=== PATIENT | male | born 1965 | race Caucasian/White ===

== ENCOUNTER → 2020-06-24 13:59 | Outpatient (CLI) | payer OTHER, SELFPAY ==
--- NOTE | ~2020-06-24 | XR_ITS ---
XR shoulder RT min 2V 06/24/2020 14:32 INDICATION: Right shoulder pain PROCEDURE: 4 views right shoulder COMPARISON: No prior studies for comparison. FINDINGS: Fracture, dislocation or subluxation is not identified. The soft tissues appear within norm al limits. No foreign bodies are identified. IMPRESSION: 1: NO ACUTE BONE OR JOINT ABNORMALITY IDENTIFIED. Reviewed, dictated and finalized at location A.
== END ==
PROVIDERS: PCP Family Medicine; Visit Provider Family Medicine
DX: M25.511 Pain in right shoulder (principal)
CPT/HCPCS: 73030

== ENCOUNTER → 2022-02-09 07:46 | Outpatient (CLI) | payer BC, SELFPAY ==
--- NOTE | ~2022-02-09 | US_ITS ---
EXAMINATION: US abdomen complete DATE: 02/09/2022 08:17 INDICATION: Abdominal pain, change in bowel function TECHNIQUE: Multiple grayscale and Doppler ultrasound images of the abdomen were obtained. COMPARISON: None available FINDINGS: The head and body of the pancreas are normal. The pancreatic tail is obscured by bowel gas. The liver demonstrates increased echogenicity, heterogenous echotexture, and decreased through trans mission. No surface nodularity. Normal hepatopetal flow in the main portal vein. There is a 4 mm gall bladder polyp. The gallbladder is otherwise normal with no abnormal wall thickening, pericholecystic fluid or stones. The normal common bile duct measures 4 mm. There was no sonographic Rosenthal sign. The visualized portions of the aorta and inferior vena cava are normal. The right kidney measures 13.3 x 5.2 x 6.2 cm. The left kidney measures 13.1 x 5.3 x 5.1 cm. The kidn eys demonstrate normal parenchymal echogenicity. There is no hydronephrosis. The spleen is normal in appearance and measures 9.1 cm. IMPRESSION: 1. Diffuse hepatic steatosis. 2. Benign gallbladder polyp. Reviewed, dictated and finalized at location A.
== END ==
PROVIDERS: PCP Physician Assistant; Visit Provider Physician Assistant
DX: R10.9 Unspecified abdominal pain (principal); R19.8 Other specified symptoms and signs involving the digestive system and abdomen; K76.0 Fatty (change of) liver, not elsewhere classified; K82.4 Cholesterolosis of gallbladder
CPT/HCPCS: 76700

== ENCOUNTER → 2022-03-10 10:09 | Outpatient (CLI) | payer BC, SELFPAY ==
--- NOTE | ~2022-03-10 | CT_ITS ---
EXAMINATION: CT abdomen pelvis wo con DATE: 03/10/2022 10:24 INDICATION: Abdominal pain TECHNIQUE: Computed tomography (CT) of the abdomen and pelvis was performed without intravenous contr ast. Automated exposure control and iterative reconstruction technique were employed. Exam dose: 100 7.02 mGy-cm total exam DLP. COMPARISON: 02/09/2022 complete abdominal ultrasound 11/25/2007 CT abdomen FINDINGS: The lung bases are clear. Normal heart size. No pericardial or pleural effusion. Hepatic steatosis with some pericholecystic sparing. No hepatic, splenic, pancreatic, adrenal or dario l space-occupying mass lesion is evident. No bile duct or pancreatic duct dilatation. No urinary tract calculus or hydroureteronephrosis. Normal appendix. Diverticulosis of the left colon; no CT evidence of diverticulitis. No bowel obstruc tion, bowel wall thickening, pneumatosis or intraperitoneal free air. Normal caliber and atherosclerotic calcification of the abdominal aorta and iliac arteries. No intrap eritoneal or retroperitoneal or pelvic mass lesion or adenopathy or ascites. Prostate enlargement and calcifications. There is moderate diffuse thickening of bladder wall, likely due to prostate enlargement. Diffuse idiopathic skeletal hyperostosis of the thoracic spine. There is degenerative spurring but re lative preservation of intervertebral disc spaces of the lumbar spine. No suspicious osteolytic or os teoblastic lesions are noted. IMPRESSION: Hepatic steatosis Normal appendix Diverticulosis of left colon Prostate enlargement and calcifications Reviewed, dictated and finalized at [facility]. Reviewed, dictated and finalized at location A.
== END ==
PROVIDERS: PCP Internal Medicine Gastroenterology; Visit Provider Physician Assistant
DX: K76.0 Fatty (change of) liver, not elsewhere classified (principal); K57.30 Diverticulosis of large intestine without perforation or abscess without bleeding; N40.1 Benign prostatic hyperplasia with lower urinary tract symptoms
CPT/HCPCS: 74176

== ENCOUNTER 2022-03-31 02:23 | Day surgery (SDC) | payer BC, SELFPAY ==
[2022-03-24 10:02] VITALS: BMI 32.6
[2022-03-31 11:08] LABS: Glucose Point of Care 150 mg/dl (65-105)
[2022-03-31 11:09] VITALS: BP 118/69; PULSE 64; RESP 18; TEMP 36.1; O2SAT 100
[2022-03-31] MEDS: LACTATED RINGERS 1,000 ML 150 ML IV CONT (11:16)
--- NOTE | 2022-03-31 11:55 | WPDHPUPDATE1 ---
History and Physical Update Update Date/Time: 03/31/22 11:55 History and Physical has been reviewed, including an updated exam of the patient. There are NO changes in the patient's condition. Risks, benefits, and alternatives have been discussed and questions answered. Patient agrees to proceed with procedure.
--- NOTE | 2022-03-31 12:00 | P.PNAN_ITS ---
Anes - Initial Pre Proc Eval Procedure: Operation Date: 03/31/22 12:30 Proposed Procedures p Esophagogastroduodenoscopy & Colonoscopy - Alexander Thomas MD Date/Time: 03/31/22 12:00 Surgeon: Alexander Thomas MD Pre Op Diagnosis: abd pain & dysphagia; change in bowel habits Patient Data Age: 56 Gender: M Height: 1.73 m Weight: 97.2 kg Last Vital Signs Temp 97.0 F L 03/31/22 11:09 Pulse 64 03/31/22 11:09 Resp 18 03/31/22 11:09 BP 118/69 03/31/22 11:09 Pulse Ox 100 03/31/22 11:09 O2 Del Method Room Air 03/31/22 11:09 Allergies Allergy/AdvReac Type Severity Reaction Status Date / Time Contrast Media Allergy Severe Unknown Uncoded 03/24/22 10:03 Home Medications Medication Instructions Recorded Confirmed Type amlodipine 5 mg tablet 5 mg PO DAILY 03/09/22 03/24/22 History atorvastatin 20 mg tablet 20 mg PO DAILY 03/09/22 03/24/22 History dofetilide 500 mcg capsule 500 mcg PO BID 03/09/22 03/24/22 History (Tikosyn) glipizide 10 mg tablet 10 mg PO BID 03/09/22 03/24/22 History irbesartan 300 mg tablet 300 mg PO DAILY 03/09/22 03/24/22 History metformin 1,000 mg tablet 1,000 mg PO BID 03/09/22 03/24/22 History metoprolol tartrate 100 mg tablet 100 mg PO DAILY 03/09/22 03/24/22 History apixaban 5 mg tablet (Eliquis) 1 tablet PO BID 03/24/22 03/31/22 History empagliflozin 10 mg tablet 1 tablet PO DAILY 03/24/22 03/24/22 History (Jardiance) spironolactone 25 mg tablet 1 tablet PO DAILY 03/24/22 03/24/22 History Laboratory Tests 03/31/22 11:00 POC Capillary Glucose 150 mg/dl H mg/dl (65-105) Patient hx anesthesia problems: none Family hx anesthesia problems: none Results Review: All pre-operative results and documents have been reviewed as part of the pre- operative evaluation. [facility] Past Medical History Medical History (Updated 03/09/22 @ 13:12 by LILIYA Matos) Change in bowel habit Diabetes Gallbladder polyp Hepatic steatosis HLD (hyperlipidemia) HTN (hypertension) Social History Social History (System 03/02/22 @ 10:29 by Marie Camejo) Smoking status: Never smoker Alcohol intake: current Substance use: never Substance use type: does not use Living arrangements: with family Spiritual care concerns: No Anes - Eval Final PreProcedure Day of Procedure 03/31/22 12:00 Patient weight: obese Heart: regular rate and rhythm Lungs: clear to auscultation Airway: Mallampati scale class II Neurological: alert and oriented Last oral intake: >/= 8 hours ASA classification: III Emergent: no Anesthetic plan: proceed Anesthesia type and monitoring: general GIVS and standard monitoring Results Review: All pre-operative results and documents have been reviewed as part of the pre- operative evaluation. Informed Consent: The patient's anesthetic plan and its attendant risks and benefits were discussed with the patient/family/POA. Questions were solicited and answers provided to the satisfaction of the patient/family/POA.
--- NOTE | 2022-03-31 12:44 | SUR.OPER ---
EGD ENDED AT 1239, COLONOSCOPY BEGAN AT 1245.
--- NOTE | 2022-03-31 12:52 | SUR.OPER ---
DILATED ESOPHAGUS WITH 52 FR VERGARA.
[2022-03-31 12:58] VITALS: BP 117/62; PULSE 58; RESP 18; O2SAT 100
[2022-03-31 13:08] VITALS: BP 123/73; PULSE 59; RESP 15; O2SAT 100
[2022-03-31 13:18] VITALS: BP 106/65; PULSE 59; RESP 18; O2SAT 98
== END 2022-03-31 13:36 | disposition home or self-care (01) ==
PROVIDERS: PCP Physician Assistant; Visit Provider Internal Medicine Gastroenterology
PROC: 0DJ08ZZ Inspection of Upper Intestinal Tract, Via Natural or Artificial Opening Endoscopic (ICD-10-PCS; CPT 43235; principal; 2022-03-31 12:30)
DX: R14.3 Flatulence (principal); K22.2 Esophageal obstruction; R10.84 Generalized abdominal pain; K64.8 Other hemorrhoids; R13.10 Dysphagia, unspecified; I10 Essential (primary) hypertension; E78.5 Hyperlipidemia, unspecified; E11.9 Type 2 diabetes mellitus without complications; I48.91 Unspecified atrial fibrillation; R19.4 Change in bowel habit; K76.0 Fatty (change of) liver, not elsewhere classified; Z79.84 Long term (current) use of oral hypoglycemic drugs; R14.0 Abdominal distension (gaseous); Z79.01 Long term (current) use of anticoagulants; E66.9 Obesity, unspecified; Z68.32 Body mass index [BMI] 32.0-32.9, adult
CPT/HCPCS: 45380; 43450; 82948; 88305; J2704; J7120